=== PATIENT | male | born 1940 | race Asian ===

== ENCOUNTER 2019-05-18 18:52 | Inpatient (IN) | payer MEDICARE, OTHER ==
[~2019-05-18] VITALS: Ht 160 cm; Wt 69.1 kg
[2019-05-18] MEDS ORDERED: SOD CHLORIDE 0.9% 1,000 ML IV STA (18:57)
[2019-05-18] MEDS ORDERED: DIPHTH/TET/ACEL PERTUSS (ADULT) 0.5 ML VIAL IM* ONE (19:00)
--- NOTE | 2019-05-18 19:18 | ERD ---
ER Documentation Chief Complaint Chief Complaint [id number],from work,syncopal episode,no trauma,hx diabetes,BS 191 per EMS HPI This is a 78-year-old man brought in by EMS from work after syncopal episode while he was sitting down, he did lose bladder control with this episode, but no obvious seizure activity was noted. He states he injured his right elbow with the fall. He denies biting his tongue, no chest pain or shortness of breath, no recent fevers or chills. HPI was limited. Patient was transported here by EMS without further complications ROS All systems reviewed and are negative except as per history of present illness. Allergies Allergies: Coded Allergies: No Known Allergy (Unverified , 05/18/19) PMhx/Soc Hypertension Medical and Surgical Hx: pt denies Surgical Hx History of Surgery: No Anesthesia Reaction: No Hx Neurological Disorder: No Hx Respiratory Disorders: No Hx Cardiac Disorders: No Hx Psychiatric Problems: No Hx Miscellaneous Medical Probl: No Hx Alcohol Use: No Hx Substance Use: No Hx Tobacco Use: No Smoking Status: Never smoker FmHx Family History: No diabetes Physical Exam Vitals Vital Signs Date Temp Pulse Resp B/P (MAP) Pulse Ox O2 O2 Flow FiO2 Time Delivery Rate 05/18/19 98.6 84 17 137/68 98 18:58 (91) Physical Exam GENERAL: Well-developed, well-nourished, well-hydrated, in no apparent distress, looks nontoxic in appearance HEENT: Moist mucous membranes, pink conjunctiva, no cervical spine tenderness or step-off deformities, no goiter, no jaundice or icterus, extraocular movements intact without pain. No submandibular induration, and no pharyngeal erythema NEURO: Alert and oriented 3, cranial nerves II through XII intact bilaterally, pupils equal round reactive to light, no focal deficits or facial asymmetry, sensation intact distally Strength 5/5 in upper and lower extremities bilaterally CARDIAC: Regular rate and rhythm, no murmurs rubs or gallops LUNGS: Clear bilaterally no wheezing crackles or stridor SKIN: Warm and dry to touch, partial skin avulsion and large abrasion to the right posterior elbow and mild ecchymosis. EXTREMITIES: No clubbing cyanosis or edema, calves are bilaterally symmetrical, no Homans sign, no popliteal cord sign. Distal pulses equal and bilateral PSYCH: Normal affect without agitation or irritability Result Diagram: 05/18/19190105/18/191901 Results 24 hrs Laboratory Tests Test 05/18/19 19:02 05/18/19 19:03 White Blood Count 10.9 10^3/ul Red Blood Count 4.88 10^6/ul Hemoglobin 14.2 g/dl Hematocrit 42.6 % Mean Corpuscular Volume 87.3 fl Mean Corpuscular Hemoglobin 29.1 pg Mean Corpuscular Hemoglobin Concent 33.3 g/dl Red Cell Distribution Width 13.0 % Platelet Count 212 10^3/UL Mean Platelet Volume 10.1 fl Immature Granulocytes % 0.300 % Neutrophils % 72.5 % Lymphocytes % 17.2 % Monocytes % 8.6 % Eosinophils % 1.0 % Basophils % 0.4 % Nucleated Red Blood Cells % 0.0 /100WBC Immature Granulocytes # 0.030 10^3/ul Neutrophils # 7.9 10^3/ul Lymphocytes # 1.9 10^3/ul Monocytes # 0.9 10^3/ul Eosinophils # 0.1 10^3/ul Basophils # 0.0 10^3/ul Nucleated Red Blood Cells # 0.0 10^3/ul Sodium Level 142 mmol/L Potassium Level 3.9 mmol/L Chloride Level 108 mmol/L Carbon Dioxide Level 21 mmol/L Anion Gap 13 Blood Urea Nitrogen 39 mg/dl Creatinine 1.03 mg/dl Est Glomerular Filtrat Rate mL/min mL/min Glucose Level 202 mg/dl Calcium Level 9.5 mg/dl Total Bilirubin 1.3 mg/dl Direct Bilirubin 0.00 mg/dl Indirect Bilirubin 1.3 mg/dl Aspartate Amino Transf (AST/SGOT) 40 IU/L Alanine Aminotransferase (ALT/SGPT) 17 IU/L Alkaline Phosphatase 89 IU/L Troponin I < 0.012 ng/ml Total Protein 8.2 g/dl Albumin 4.4 g/dl Globulin 3.80 g/dl Albumin/Globulin Ratio 1.15 Lipase 63 U/L Bedside Glucose 186 mg/dL Current Medications Medications Dose Sig/Jessica Start Time Status Last (Trade) Ordered Route PRN Stop Time Admin Dose Reason Admin Sodium 1,000 ml @ Q1H STAT 05/18/19 DC 05/18/19 Chloride 1,000 mls/hr IV 18:57 05/18/19 19:04 19:56 Diphtheria/ 0.5 ml ONCE ONCE 05/18/19 DC 05/18/19 Tetanus/Acell IM* 19:00 05/18/19 19:05 Pertussis 19:01 (Adacel) Procedures/MDM IV line was established patient was placed on rehab aid rhythm strip revealed a sinus rhythm at about 80 bpm with upright P and T waves. Patient was afebrile EKG performed, read by me revealed a normal sinus rhythm at 84 bpm, normal axis, right ventricular conduction delay QRS duration 102 ms, no concerning ST elevations or depressions chest X-ray 1V Interpreted by me: Soft Tissue: No acute abnormalities Bones: No acute abnormalities Mediastinum/Cardiac Silhouette/Lungs: No acute abnormalities X-ray right Elbow 3V Interpreted by me: Fat Pads: Normal Bones: No fracture Joints: No dislocation Foreign body: None CT scan of the head was negative for acute bleed mass or shift I administered 1 L normal saline IV and tetanus toxoid 0.5 mL IM x1. Right elbow was cleansed and irrigated, dressing applied. CBC and electrolytes were within normal limits, liver function test normal, troponin was negative Patient will be admitted to telemetry setting for continued medical management and possible cardiology consultation Departure Diagnosis: Primary Impression: Syncope Syncope type: unspecified Qualified Codes: R55 - Syncope and collapse Additional Impressions: Elbow abrasion Encounter type: initial encounter Laterality: right Qualified Codes: S50.311A - Abrasion of right elbow, initial encounter Elbow sprain Encounter type: initial encounter Laterality: right Qualified Codes: S53.401A - Unspecified sprain of right elbow, initial encounter Condition: WILIAM Bhardwaj MD May 18, 2019 19:18
[2019-05-18 23:00] VITALS: BP 150/77; PULSE 78; RESP 20
[2019-05-18 23:20] VITALS: Ht 160 cm; Wt 69.1 kg
--- NOTE | 2019-05-18 23:58 | HP ---
Date/Time of Note Date/Time of Note DATE: 05/18/19 TIME: 23:58 Assessment/Plan VTE Prophylaxis Pharmacological prophylaxis: heparin Lines/Catheters IV Catheter Type (from Nrsg): Saline Lock Assessment/Plan Assessment/Plan 1. Syncope: -Telemetry monitoring -Head CT only shows remote lacunar infarct -Check orthostatics -2D echo and carotids -EKG without arrhythmia -Serial troponin 2. Right elbow injury -X-ray shows moderate soft tissue swelling and small joint effusion, but no fracture -Pain management Result Diagram: 05/18/19 19005/18/19 1902 Results 24hrs Laboratory Tests Test 05/18/19 19:02 05/18/19 19:03 White Blood Count 10.9 H Red Blood Count 4.88 Hemoglobin 14.2 Hematocrit 42.6 Mean Corpuscular Volume 87.3 Mean Corpuscular Hemoglobin 29.1 Mean Corpuscular Hemoglobin Concent 33.3 Red Cell Distribution Width 13.0 Platelet Count 212 Mean Platelet Volume 10.1 Immature Granulocytes % 0.300 Neutrophils % 72.5 Lymphocytes % 17.2 Monocytes % 8.6 Eosinophils % 1.0 Basophils % 0.4 Nucleated Red Blood Cells % 0.0 Immature Granulocytes # 0.030 Neutrophils # 7.9 H Lymphocytes # 1.9 Monocytes # 0.9 Eosinophils # 0.1 Basophils # 0.0 Nucleated Red Blood Cells # 0.0 Sodium Level 142 Potassium Level 3.9 Chloride Level 108 Carbon Dioxide Level 21 Anion Gap 13 Blood Urea Nitrogen 39 H Creatinine 1.03 Est Glomerular Filtrat Rate mL/min Glucose Level 202 Calcium Level 9.5 Total Bilirubin 1.3 Direct Bilirubin 0.00 Indirect Bilirubin 1.3 H Aspartate Amino Transf (AST/SGOT) 40 Alanine Aminotransferase (ALT/SGPT) 17 Alkaline Phosphatase 89 Troponin I < 0.012 Total Protein 8.2 H Albumin 4.4 Globulin 3.80 H Albumin/Globulin Ratio 1.15 Lipase 63 Bedside Glucose 186 HPI/ROS Admit Date/Time Admit Date/Time May 18, 2019 at 19:56 Hx of Present Illness Patient is a 78-year-old male with no significant past medical history except back pain who was brought to the ER after he had a loss of consciousness and fall. He was sitting when he had a witnessed syncopal episode. He said he placed Salonpas pain relieving patch to his back and while he was sitting down, he felt dizzy. He also felt both of his leg were weak. He said he periodically use Salonpas for back pain. 3 days ago, he felt dizzy and fell while he was at a restaurant. He sustained some injury to his elbows and the skin over his knee. He denied chest pain, palpitations, seizure-like activity. When presented to the ER, vitals were stable. Head CT shows remote lacunar infarct. Right elbow x-ray shows moderate soft tissue swelling and small joint effusion, but no fracture. Chest x-ray shows there is bilateral perihilar scarring versus atelectasis, likely COPD. PMH/Family/Social Past Medical History Past Surgical Hx: other Family History Significant Family History: no pertinent family hx Social History Alcohol Use: none Smoking Status: Never smoker Drug Use: none Exam Constitutional: other (No acute distress) Head: normocephalic, atraumatic Eyes: EOMI, PERRL Respiratory: clear to auscultation, normal air movement Cardiovascular: regular rate and rhythm Gastrointestinal: soft Extremities: normal pulses Coded Allergies: No Known Allergy (Unverified , 05/18/19) Social History Smoking Status: Never smoker Exam/Review of Systems Vital Signs Vitals Vital Signs Date Temp Pulse Resp B/P (MAP) Pulse Ox O2 O2 Flow FiO2 Time Delivery Rate 05/18/19 82 18 133/77 98 Room Air 22:41 (95) 05/18/19 98.6 18:58 Exam Constitutional: other (No acute distress) Head: normocephalic, atraumatic Eyes: EOMI, PERRL Respiratory: clear to auscultation, normal air movement Cardiovascular: regular rate and rhythm, nl pulses Gastrointestinal: soft, non-tender Extremities: other (Ecchymosis of the elbow. Lesion over knee also noted) CHETNA EID MD May 18, 2019 23:58
[2019-05-19] VITALS (8 sets, daily range): BP systolic 121–148; BP diastolic 60–72; PULSE 70–99; RESP 16–18
[2019-05-19] MEDS ORDERED: ONDANSETRON 4 MG INJ IV PRN
[2019-05-19] MEDS ORDERED: ALBUTEROL/IPRATROPIUM (NEB) 3 ML AMP HHN PRN
[2019-05-19] MEDS ORDERED: ACETAMINOPHEN 325 MG TAB PO PRN
[2019-05-19] MEDS ORDERED: NACL 0.9% 3 ML SYG IV SCH
[2019-05-19] MEDS ORDERED: PENDING SANTYL ORDER FOR WOUND CARE XX PRN (01:00)
[2019-05-19] MEDS: ASPIRIN (EC) 81 MG TAB PO SCH (12:51)
[2019-05-19] MEDS: HEPARIN 5,000 UNIT/1 ML VIAL SC SCH ×2 (12:59→20:56)
--- NOTE | 2019-05-19 15:15 | RADRPT ---
Echocardiogram Report Patient Name: ARUN RODRIGUEZPatient ID: [id number] : 1940 (78y 10m)Study Date: 05/19/2019 9:36:45 AM Gender: MAccession #: [id number] Tech: Devendra Nayak [facility] Location: [address] Ref.Physician: CHETNA EID Height(Cm): BSA: Weight(Kg): Quality: AdequateOrder Physician: CHETNA EID Account #: Procedures: Echocardiographic Report: Transthoracic echocardiogram with complete 2D, M-Mode, and doppler examination. Indications: Syncope. Measurements: 2D/M Mode Doppler Measurement Value Normal Range Measurement Value Normal Range LVIDd 2D 4.3 [ 4.2 - 5.8 ] cm AV Peak Manav 1.2 [ 100.0 - 170.0 ] cm/sec LVIDs 2D 3.6 [ 2.5 - 4.0 ] cm AV Peak PG 6.0 [ 2.0 - 9.0 ] mmHg LVPWd 2D 1.4 [ 0.6 - 1.0 ] cm LVOT Peak Manav 1.1 [ 70.0 - 110.0 ] cm/sec IVSd 2D 1.4 [ 0.6 - 1.0 ] cm LVOT Peak PG 5.0 [ 2.0 - 6.0 ] mmHg AoR Diam 2D 3.2 [ 2.6 - 3.4 ] cm MV E Peak Manav 0.6 [ 60.0 - 130.0 ] cm/sec EDV 2D 85.4 [ 62.0 - 150.0 ] ml MV A Peak Manav 1.1 [ 100.0 - 120.0 ] cm/sec ESV 2D 55.5 [ 21.0 - 61.0 ] ml MV E/A 0.5 [ 0.8 - 1.5 ] ratio EF 2D 35.0 [ 52.0 - 72.0 ] percent MV Decel Time 229 [ 104 - 258 ] msec LA Dimen 2D 3.8 [ 3.0 - 4.0 ] cm Lat E` Manav 0.1 [ 10.0 - 15.0 ] cm/sec Lateral E/E` 7.6 [ 1.0 - 2.0 ] ratio Med E` Manav 0.1 cm/sec MV E/A 0.5 [ 0.8 - 1.5 ] ratio RA Pressure 3.0 mmHg Findings: Left Ventricle: Normal left ventricular cavity size. Mild concentric left ventricular hypertrophy. Mild global left ventricular systolic dysfunction. Ejection fraction is visually estimated at 40-45 %. Tissue Doppler/Mitral Doppler indices are consistent with impaired relaxation (Stage I diastolic dysfunction). Right Ventricle: Normal right ventricular size. Normal right ventricular systolic function. Left Atrium: The left atrium is normal in size. Right Atrium: The right atrium is normal in size. Mitral Valve: Mild mitral leaflet calcification. Mild mitral annular calcification. Trace mitral regurgitation. Aortic Valve: No significant aortic stenosis or insufficiency. Aortic cusps appear mildly calcified. Tricuspid Valve: Normal appearance of the tricuspid valve. Unable to obtain RVSP due to minimal presence of tricuspid regurgitation. Pericardium: Normal pericardium with no significant pericardial effusion. Aorta: Normal aortic root. IVC: Normal size and normal respiratory collapse consistent with normal right atrial pressure. Conclusions: Normal left ventricular cavity size. Mild concentric left ventricular hypertrophy. Mild global left ventricular systolic dysfunction. Ejection fraction is visually estimated at 40-45 %. Tissue Doppler/Mitral Doppler indices are consistent with impaired relaxation (Stage I diastolic dysfunction). Mild mitral leaflet calcification. Mild mitral annular calcification. Trace mitral regurgitation. Normal appearance of the tricuspid valve. Unable to obtain RVSP due to minimal presence of tricuspid regurgitation. Electronically Signed By: Aneesh Bennett 2019-05-19 15:15:27 PDT
[2019-05-19] MEDS ORDERED: ATORVASTATIN 10 MG TAB PO SCH (21:00)
[2019-05-20 00:22] VITALS: BP 140/89; PULSE 91; RESP 18
[2019-05-20 04:17] VITALS: BP 148/86; PULSE 18; RESP 18
[2019-05-20 07:41] VITALS: BP 153/75; PULSE 90; RESP 16
[2019-05-20] MEDS: ASPIRIN (EC) 81 MG TAB PO SCH (10:24)
[2019-05-20] MEDS: HEPARIN 5,000 UNIT/1 ML VIAL SC SCH (10:27)
--- NOTE | 2019-05-20 10:30 | CONSI ---
Assessment/Plan Assessment/Plan Assessment/Plan (Recall) 78 M c/ multiple cerebrovascular risk factors, who presents for evaluation following a fall MRI brain confirms scattered, left hemisphere predominant acute infarcts...for which neurology is consulted. CTA neck as notable for bicarotid stenosis...worst on the left. TTE is unrevealing LDL 170; a1c 9 P: Vascular surgery evaluation Agree w asa daily for secondary prevention for now Change lipitor to 80 mg hs for now Add UDS, RPR, ESR Continued BP, glucose and other medical management per primary PT/OT/ST as necessary Will follow Consultation Date/Type/Reason Admit Date/Time May 18, 2019 at 19:56 Type of Consult Neurology Reason for Consultation stroke Requesting Provider: JOSE JEFFERSON MD Date/Time of Note DATE: 05/20/19 TIME: 10:23 Hx of Present Illness Patient is a 78-year-old male with no significant past medical history except back pain who was brought to the ER after he had a loss of consciousness and fall. He was sitting when he had a witnessed syncopal episode. He said he placed Salonpas pain relieving patch to his back and while he was sitting down, he felt dizzy. He also felt both of his leg were weak. He said he periodically use Salonpas for back pain. 3 days ago, he felt dizzy and fell while he was at a restaurant. He sustained some injury to his elbows and the skin over his knee. He denied chest pain, palpitations, seizure-like activity. When presented to the ER, vitals were stable. Head CT shows remote lacunar infarct. Right elbow x-ray shows moderate soft tissue swelling and small joint effusion, but no fracture. Chest x-ray shows there is bilateral perihilar scarring versus atelectasis, likely COPD. MRI brain confirmed scatter acute infarcts, for which neurology is consulted. 12 PT ROS o/w neg Objective Exam Vitals Vital Signs Date Temp Pulse Resp B/P (MAP) Pulse Ox O2 O2 Flow FiO2 Time Delivery Rate 05/20/19 98.2 90 16 153/75 96 Room Air 07:41 (101) Intake and Output 05/19/19 05/19/19 05/20/19 1515:00 23:00 07:00 OutputOutput Total 220 ml 200 ml BalanceBalance -220 ml -200 ml Exam PE: Gen Appearance: No Apparent Distress HEENT: Normocephalic Cardiovascular: Regular rate Abdomen: Soft Extremities: Dry NE: The patient was alert and oriented. Language was normal. Fund of knowledge was adequate. Pupils were equal and reactive to light. There was no afferent pupillary defect. Visual albarran were normal. Funduscopic examination was limited. Extra-ocular movements were full. Ptosis was absent. There was no nystagmus. Facial sensation was normal. Face was symmetric with normal strength. Hearing was intact. Palate movements were normal. Neck strength was normal. There was normal tongue bulk and speed of movement. Tone was normal. Muscle bulk was normal. I did not see fasciculations. R leg was severely weak. Vibration sensation was normal. Temperature and pinprick sensation was normal. Rapid alternating movements were normal. There was no dysmetria. There was no intention tremor. Gait was deferred due to bedrest. Arm and leg reflexes were symmetric. Blevins's sign was absent. Plantar response was extensor on the right. Results Result Diagram: 05/20/19 0515 05/20/19 0515 Results 24hrs Laboratory Tests Test 05/20/19 05:15 White Blood Count 8.4 Red Blood Count 4.60 L Hemoglobin 13.4 L Hematocrit 40.4 L Mean Corpuscular Volume 87.8 Mean Corpuscular Hemoglobin 29.1 Mean Corpuscular Hemoglobin Concent 33.2 Red Cell Distribution Width 12.9 Platelet Count 211 Mean Platelet Volume 10.4 Immature Granulocytes % 0.400 Neutrophils % 69.8 Lymphocytes % 19.1 Monocytes % 8.8 Eosinophils % 1.2 Basophils % 0.7 Nucleated Red Blood Cells % 0.0 Immature Granulocytes # 0.030 Neutrophils # 5.9 Lymphocytes # 1.6 Monocytes # 0.7 Eosinophils # 0.1 Basophils # 0.1 Nucleated Red Blood Cells # 0.0 Prothrombin Time 13.1 Prothrombin Time Ratio 1.0 INR International Normalized Ratio 0.98 Sodium Level 144 Potassium Level 3.8 Chloride Level 113 H Carbon Dioxide Level 24 Anion Gap 7 Blood Urea Nitrogen 26 H Creatinine 0.79 Est Glomerular Filtrat Rate mL/min Glucose Level 245 H Calcium Level 8.8 Phosphorus Level 2.6 Magnesium Level 2.1 Free Thyroxine 1.45 Total Triiodothyronine 0.70 L Past Medical History reviewed Medications Current Medications IV Flush (NS 3 ml) 3 ml PER PROTOCOL IV ; Start 05/19/19 at 00:00 Ondansetron HCl (Zofran Inj) 4 mg Q6H PRN IV NAUSEA/VOMITING; Start 05/19/19 at 00:00 Acetaminophen (Tylenol Tab) 650 mg Q6H PRN PO .PAIN 1-3 OR TEMP; Start 05/19/19 at 00:00 Heparin Sodium (Porcine) (Heparin (5000 Units/1ml)) 5,000 unit Q12 SC Last administered on 05/19/19at 20:56; Admin Dose 5,000 UNIT; Start 05/19/19 at 09:00 Albuterol/ Ipratropium (Duoneb) 3 ml Q2H RESP THERAPY PRN HHN SHORTNESS OF BREATH; Start 05/19/19 at 00:00 Aspirin (Halfprin) 81 mg DAILY PO Last administered on 05/19/19at 12:51; Admin Dose 81 MG; Start 05/19/19 at 09:00 Miscellaneous Information (Pending [facility] Order For Wound Care) This patient robledo... PRN PRN XX WOUND CARE; Start 05/19/19 at 01:00 Atorvastatin Calcium (Lipitor) 10 mg HS PO Last administered on 05/19/19at 20:54; Admin Dose 10 MG; Start 05/19/19 at 21:00 Allergies: Coded Allergies: No Known Allergy (Unverified , 05/18/19) Social History Smoking Status: Never smoker MICKIE REID May 20, 2019 10:30
[2019-05-20] MEDS ORDERED: SOD CHLORIDE 0.9% 100 ML ONE (11:00)
[2019-05-20] MEDS ORDERED: IOHEXOL 100 ML ONE (11:00)
[2019-05-20 11:30] VITALS: BP 140/71; PULSE 77; RESP 18
--- NOTE | 2019-05-20 14:36 | PN ---
Date/Time of Note Date/Time of Note DATE: 05/20/19 TIME: 14:34 Assessment/Plan VTE Prophylaxis Risk score (from Ns)>0 risk: 4 SCD applied (from Ns): Yes SCD contraindicated: low risk/ambulating Pharmacological prophylaxis: LMWH Lines/Catheters IV [facility]from [facility] Saline Lock Assessment/Plan Hospital Course Assessment and plan 1. Syncope, likely symptomatic carotid stenosis. Stable check CTA 2. Bilateral carotid stenosis, stable consult vascular 3. Acute ischemic stroke, stable continue risk factor modification 4. Delirium encephalopathy? Multifactorial continue supportive care 5. Failure to thrive, stable discharge to acute rehab 6. Clinical hypothyroidism, thyroid nodules? Check labs ultrasound 7. Type 2 diabetes A1c 9. Restart medical therapy 8. Metabolic syndrome 9. Dyslipidemia Subjective: 05/20 no distress follows commands. Not oriented today. Objective: Vital signs stable Physical exam No pallor droop Regular no murmur gallop Clear Benign No edema there is moderate right lower extremity hemiparesis Result Diagram: 05/20/19 0515 05/20/19 0515 Results 24hrs Laboratory Tests Test 05/20/19 05:15 White Blood Count 8.4 Red Blood Count 4.60 L Hemoglobin 13.4 L Hematocrit 40.4 L Mean Corpuscular Volume 87.8 Mean Corpuscular Hemoglobin 29.1 Mean Corpuscular Hemoglobin Concent 33.2 Red Cell Distribution Width 12.9 Platelet Count 211 Mean Platelet Volume 10.4 Immature Granulocytes % 0.400 Neutrophils % 69.8 Lymphocytes % 19.1 Monocytes % 8.8 Eosinophils % 1.2 Basophils % 0.7 Nucleated Red Blood Cells % 0.0 Immature Granulocytes # 0.030 Neutrophils # 5.9 Lymphocytes # 1.6 Monocytes # 0.7 Eosinophils # 0.1 Basophils # 0.1 Nucleated Red Blood Cells # 0.0 Erythrocyte Sedimentation Rate 25.0 H Prothrombin Time 13.1 Prothrombin Time Ratio 1.0 INR International Normalized Ratio 0.98 Sodium Level 144 Potassium Level 3.8 Chloride Level 113 H Carbon Dioxide Level 24 Anion Gap 7 Blood Urea Nitrogen 26 H Creatinine 0.79 Est Glomerular Filtrat Rate mL/min Glucose Level 245 H Calcium Level 8.8 Phosphorus Level 2.6 Magnesium Level 2.1 Free Thyroxine 1.45 Total Triiodothyronine 0.70 L Exam/Review of Systems Exam Vitals Vital Signs Date Temp Pulse Resp B/P (MAP) Pulse Ox O2 O2 Flow FiO2 Time Delivery Rate 05/20/19 98.5 77 18 140/71 98 Room Air 11:30 (94) Intake and Output 05/19/19 05/19/19 05/20/19 1515:00 23:00 07:00 OutputOutput Total 220 ml 200 ml BalanceBalance -220 ml -200 ml Results Results 24hrs Laboratory Tests Test 05/20/19 05:15 White Blood Count 8.4 Red Blood Count 4.60 L Hemoglobin 13.4 L Hematocrit 40.4 L Mean Corpuscular Volume 87.8 Mean Corpuscular Hemoglobin 29.1 Mean Corpuscular Hemoglobin Concent 33.2 Red Cell Distribution Width 12.9 Platelet Count 211 Mean Platelet Volume 10.4 Immature Granulocytes % 0.400 Neutrophils % 69.8 Lymphocytes % 19.1 Monocytes % 8.8 Eosinophils % 1.2 Basophils % 0.7 Nucleated Red Blood Cells % 0.0 Immature Granulocytes # 0.030 Neutrophils # 5.9 Lymphocytes # 1.6 Monocytes # 0.7 Eosinophils # 0.1 Basophils # 0.1 Nucleated Red Blood Cells # 0.0 Erythrocyte Sedimentation Rate 25.0 H Prothrombin Time 13.1 Prothrombin Time Ratio 1.0 INR International Normalized Ratio 0.98 Sodium Level 144 Potassium Level 3.8 Chloride Level 113 H Carbon Dioxide Level 24 Anion Gap 7 Blood Urea Nitrogen 26 H Creatinine 0.79 Est Glomerular Filtrat Rate mL/min Glucose Level 245 H Calcium Level 8.8 Phosphorus Level 2.6 Magnesium Level 2.1 Free Thyroxine 1.45 Total Triiodothyronine 0.70 L Medications Medication Current Medications IV Flush (NS 3 ml) 3 ml PER PROTOCOL IV ; Start 05/19/19 at 00:00 Ondansetron HCl (Zofran Inj) 4 mg Q6H PRN IV NAUSEA/VOMITING; Start 05/19/19 at 00:00 Acetaminophen (Tylenol Tab) 650 mg Q6H PRN PO .PAIN 1-3 OR TEMP; Start 05/19/19 at 00:00 Heparin Sodium (Porcine) (Heparin (5000 Units/1ml)) 5,000 unit Q12 SC Last administered on 05/20/19at 10:27; Admin Dose 5,000 UNIT; Start 05/19/19 at 09:00 Albuterol/ Ipratropium (Duoneb) 3 ml Q2H RESP THERAPY PRN HHN SHORTNESS OF BREATH; Start 05/19/19 at 00:00 Aspirin (Halfprin) 81 mg DAILY PO Last administered on 05/20/19at 10:24; Admin Dose 81 MG; Start 05/19/19 at 09:00 [facility] This patient robleod... PRN PRN XX WOUND CARE; Start 05/19/19 at 01:00 Atorvastatin Calcium (Lipitor) 80 mg HS PO ; Start 05/20/19 at 21:00 JOSE JEFFERSON MD May 20, 2019 14:36
--- NOTE | 2019-05-20 14:37 | PN ---
Date/Time of Note Date/Time of Note DATE: 05/20/19 TIME: 14:37 Assessment/Plan VTE Prophylaxis Risk score (from Ns)>0 risk: 4 SCD applied (from Ns): Yes SCD contraindicated: low risk/ambulating Pharmacological prophylaxis: LMWH Lines[facility] Assessment/Plan Hospital Course Assessment and plan 1. Syncope, likely symptomatic carotid stenosis. Stable check CTA 2. Bilateral carotid stenosis, stable consulted vascular 3. Acute ischemic stroke, stable continue risk factor modification 4. Delirium/ encephalopathy? Multifactorial continue supportive care 5. Failure to thrive, stable discharge to acute rehabSNF 6. Clinical hypothyroidism, thyroid nodules? Check labs ultrasound 7. Type 2 diabetes A1c 9. Restart medical therapy 8. Metabolic syndrome 9. Dyslipidemia Subjective: 05/20 no distress following commands. Objective: Vital signs stable Physical exam No pallor droop Regular no mrg Clear Benign No edema there is moderate right lower extremity hemiparesis Result Diagram: 05/20/19 0515 05/20/19 0515 Results 24hrs Laboratory Tests Test 05/20/19 05:15 White Blood Count 8.4 Red Blood Count 4.60 L Hemoglobin 13.4 L Hematocrit 40.4 L Mean Corpuscular Volume 87.8 Mean Corpuscular Hemoglobin 29.1 Mean Corpuscular Hemoglobin Concent 33.2 Red Cell Distribution Width 12.9 Platelet Count 211 Mean Platelet Volume 10.4 Immature Granulocytes % 0.400 Neutrophils % 69.8 Lymphocytes % 19.1 Monocytes % 8.8 Eosinophils % 1.2 Basophils % 0.7 Nucleated Red Blood Cells % 0.0 Immature Granulocytes # 0.030 Neutrophils # 5.9 Lymphocytes # 1.6 Monocytes # 0.7 Eosinophils # 0.1 Basophils # 0.1 Nucleated Red Blood Cells # 0.0 Erythrocyte Sedimentation Rate 25.0 H Prothrombin Time 13.1 Prothrombin Time Ratio 1.0 INR International Normalized Ratio 0.98 Sodium Level 144 Potassium Level 3.8 Chloride Level 113 H Carbon Dioxide Level 24 Anion Gap 7 Blood Urea Nitrogen 26 H Creatinine 0.79 Est Glomerular Filtrat Rate mL/min Glucose Level 245 H Calcium Level 8.8 Phosphorus Level 2.6 Magnesium Level 2.1 Free Thyroxine 1.45 Total Triiodothyronine 0.70 L Exam/Review of Systems Exam Vitals Vital Signs Date Temp Pulse Resp B/P (MAP) Pulse Ox O2 O2 Flow FiO2 Time Delivery Rate 05/20/19 98.5 77 18 140/71 98 Room Air 11:30 (94) Intake and Output 05/19/19 05/19/19 05/20/19 1515:00 23:00 07:00 OutputOutput Total 220 ml 200 ml BalanceBalance -220 ml -200 ml Results Results 24hrs Laboratory Tests Test 05/20/19 05:15 White Blood Count 8.4 Red Blood Count 4.60 L Hemoglobin 13.4 L Hematocrit 40.4 L Mean Corpuscular Volume 87.8 Mean Corpuscular Hemoglobin 29.1 Mean Corpuscular Hemoglobin Concent 33.2 Red Cell Distribution Width 12.9 Platelet Count 211 Mean Platelet Volume 10.4 Immature Granulocytes % 0.400 Neutrophils % 69.8 Lymphocytes % 19.1 Monocytes % 8.8 Eosinophils % 1.2 Basophils % 0.7 Nucleated Red Blood Cells % 0.0 Immature Granulocytes # 0.030 Neutrophils # 5.9 Lymphocytes # 1.6 Monocytes # 0.7 Eosinophils # 0.1 Basophils # 0.1 Nucleated Red Blood Cells # 0.0 Erythrocyte Sedimentation Rate 25.0 H Prothrombin Time 13.1 Prothrombin Time Ratio 1.0 INR International Normalized Ratio 0.98 Sodium Level 144 Potassium Level 3.8 Chloride Level 113 H Carbon Dioxide Level 24 Anion Gap 7 Blood Urea Nitrogen 26 H Creatinine 0.79 Est Glomerular Filtrat Rate mL/min Glucose Level 245 H Calcium Level 8.8 Phosphorus Level 2.6 Magnesium Level 2.1 Free Thyroxine 1.45 Total Triiodothyronine 0.70 L Medications Medication Current Medications IV Flush (NS 3 ml) 3 ml PER PROTOCOL IV ; Start 05/19/19 at 00:00 Ondansetron HCl (Zofran Inj) 4 mg Q6H PRN IV NAUSEA/VOMITING; Start 05/19/19 at 00:00 Acetaminophen (Tylenol Tab) 650 mg Q6H PRN PO .PAIN 1-3 OR TEMP; Start 05/19/19 at 00:00 Heparin Sodium (Porcine) (Heparin (5000 Units/1ml)) 5,000 unit Q12 SC Last administered on 05/20/19at 10:27; Admin Dose 5,000 UNIT; Start 05/19/19 at 09:00 Albuterol/ Ipratropium (Duoneb) 3 ml Q2H RESP THERAPY PRN HHN SHORTNESS OF BREATH; Start 05/19/19 at 00:00 Aspirin (Halfprin) 81 mg DAILY PO Last administered on 05/20/19at 10:24; Admin Dose 81 MG; Start 05/19/19 at 09:00 Miscellaneous Information (Pending [facility] Order For Wound Care) This patient robledo... PRN PRN XX WOUND CARE; Start 05/19/19 at 01:00 Atorvastatin Calcium (Lipitor) 80 mg HS PO ; Start 05/20/19 at 21:00 JOSE JEFFERSON MD May 20, 2019 14:37
[2019-05-20 15:39] VITALS: BP 119/69; PULSE 84; RESP 16
[2019-05-20 20:00] VITALS: BP 121/61; PULSE 83; RESP 83
[2019-05-20] MEDS: ATORVASTATIN 80 MG TAB PO SCH (21:01)
[2019-05-20] MEDS: FAMOTIDINE 20 MG TAB PO SCH (21:01)
[2019-05-21] VITALS: BP 109/53; PULSE 80; RESP 18
[2019-05-21 04:33] VITALS: BP 103/62; PULSE 76; RESP 18
[2019-05-21 07:17] VITALS: BP 105/58; PULSE 76; RESP 16
[2019-05-21] MEDS ORDERED: LISINOPRIL 5 MG TAB PO SCH (09:00)
[2019-05-21] MEDS: ASPIRIN (EC) 81 MG TAB PO SCH (10:07)
[2019-05-21] MEDS: ENOXAPARIN 40 MG/0.4 ML SYG SC SCH (10:12)
[2019-05-21 11:42] VITALS: BP 102/55; PULSE 92; RESP 20
[2019-05-21 15:22] VITALS: BP 112/58; PULSE 69; RESP 18
--- NOTE | 2019-05-21 15:55 | PN ---
Date/Time of Note Date/Time of Note DATE: 05/21/19 TIME: 15:53 Assessment/Plan VTE Prophylaxis Risk score (from Ns)>0 risk: 4 SCD applied (from Ns): Yes SCD contraindicated: low risk/ambulating Pharmacological prophylaxis: LMWH Pharm contraindication: low risk/ambulating Lines/Catheters [facility]from [facility] Saline Lock Assessment/Plan Hospital Course Assessment and plan 1. Syncope, likely symptomatic carotid stenosis. Stable consulted Vascular. 2. Bilateral carotid stenosis, stable consulted vascular 3. Acute ischemic stroke, stable continue risk factor modification 4. Delirium/ encephalopathy? Multifactorial continue supportive care 5. Failure to thrive, stable discharge to acute rehab/ SNF 6. Clinical hypothyroidism, thyroid nodules? Checked labs ultrasound 7. Type 2 diabetes A1c 9. Restarted medical therapy 8. Metabolic syndrome 9. Dyslipidemia Subjective: 05/20 no distress following commands. 05/21: no oriented, but follows commands. no new deficits. Objective: Vital signs stable PE No pallor droop, no c bruits Regular no mrg Clear Benign No edema moderate right lower ext weakness Result Diagram: 05/20/1915 05/20/1915 Results 24hrs Laboratory Tests Test 05/21/19 02:23 Urine Opiates Screen Negative Urine Barbiturates Negative Urine Amphetamines Screen Negative Urine Benzodiazepines Screen Negative Urine Cocaine Screen Negative Urine Cannabinoids Negative Exam/Review of Systems Exam Vitals Vital Signs Date Temp Pulse Resp B/P (MAP) Pulse Ox O2 O2 Flow FiO2 Time Delivery Rate 05/21/19 98.2 69 18 112/58 96 Room Air 15:22 (76) Intake and Output 05/20/19 05/20/19 05/21/19 1515:00 23:00 07:00 IntakeIntake Total 600 ml 360 ml OutputOutput Total 900 ml 250 ml BalanceBalance 600 ml -540 ml -250 ml Results Results 24hrs Laboratory Tests Test 05/21/19 02:23 Urine Opiates Screen Negative Urine Barbiturates Negative Urine Amphetamines Screen Negative Urine Benzodiazepines Screen Negative Urine Cocaine Screen Negative Urine Cannabinoids Negative Medications Medication Current Medications IV Flush (NS 3 ml) 3 ml PER PROTOCOL IV ; Start 05/19/19 at 00:00 Ondansetron HCl (Zofran Inj) 4 mg Q6H PRN IV NAUSEA/VOMITING; Start 05/19/19 at 00:00 Acetaminophen (Tylenol Tab) 650 mg Q6H PRN PO .PAIN 1-3 OR TEMP; Start 05/19/19 at 00:00 Albuterol/ Ipratropium (Duoneb) 3 ml Q2H RESP THERAPY PRN HHN SHORTNESS OF BR EATH; Start 05/19/19 at 00:00 Aspirin (Halfprin) 81 mg DAILY PO Last administered on 05/21/19at 10:07; Admin Dose 81 MG; Start 05/19/19 at 09:00 Miscellaneous Information (Pending [facility] Order For Wound Care) This patient robledo... PRN PRN XX WOUND CARE; Start 05/19/19 at 01:00 Atorvastatin Calcium (Lipitor) 80 mg HS PO Last administered on 05/20/19at 21:01; Admin Dose 80 MG; Start 05/20/19 at 21:00 Enoxaparin Sodium (Lovenox) 40 mg DAILY SC Last administered on 05/21/19at 10:12; Admin Dose 40 MG; Start 05/21/19 at 09:00 Famotidine (Pepcid) 20 mg HS PO Last administered on 05/20/19at 21:01; Admin Dose 20 MG; Start 05/20/19 at 21:00 Lisinopril (Zestril) 2.5 mg DAILY PO ; Start 05/21/19 at 09:00 JOSE JEFFERSON MD May 21, 2019 15:55
--- NOTE | 2019-05-21 17:23 | CONS ---
DATE OF ADMISSION: 05/18/2019 DATE OF CONSULTATION: REASON FOR CONSULTATION: Evaluation for carotid stenosis. HISTORY OF PRESENT ILLNESS: This is a 78-year-old male with a history of back pain, admitted with di zziness and syncope. No lateralizing sign. Part of his workup has included a carotid ultrasound whi ch has showed greater than 70% stenosis in the left ICA and 50% to 69% stenosis in the right ICA. Th is was followed up with a CT of the neck which has showed a 75% stenosis in the ICA involved and 70% stenosis in the right ICA involved. The patient has also had a CAT scan of the brain, which shows no evidence of any recent acute stroke. MRI of the brain has also been done which shows multiple punct ate acute infarcts in the left frontal and parietal cortex. PAST MEDICAL HISTORY: Hypertension. PAST SURGICAL HISTORY: None. ALLERGIES: NONE. MEDICATIONS: List reviewed. PHYSICAL EXAMINATION: VITAL SIGNS: Blood pressure is 112/58, pulse is 69, respirations 18, saturations 96% on room air. CARDIOVASCULAR: Regular rate and rhythm. Normal S1, S2. LUNGS: Clear. ABDOMEN: Soft. EXTREMITIES: Warm. LABORATORY VALUES: Hemoglobin 13.4, white count 8.4, creatinine 0.79. IMPRESSION: 1. Syncope. 2. No lateralizing sign. No signs of acute infarct. RECOMMENDATIONS: The patient has high grade stenosis of the carotid arteries, worse on the left than the right. He would need a carotid endarterectomy on the left side after he has recovered from the current neurological event. We will discuss with the referring physicians. Dictated By: JAELYN MAZARIEGOS/ANTHONY Conf#: [id number] DID#: [id number]
--- NOTE | 2019-05-21 18:08 | CONS ---
Assessment/Plan Assessment/Plan Assessment/Plan (Recall) 78 M c/ multiple cerebrovascular risk factors, who presents for evaluation following a fall MRI brain confirms scattered, left hemisphere predominant acute infarcts...for which neurology is consulted. CTA neck as notable for bicarotid stenosis...worst on the left. TTE is unrevealing LDL 170; a1c 9, ESR 25 UDS neg; RPR neg P: Agree w/ L CEA, per vascular surgery Agree w asa daily for secondary prevention for now Continue lipitor 80 mg hs for now Continued BP, glucose and other medical management per primary PT/OT/ST as necessary Will follow clinically Consultation Date/Type/Reason Admit Date/Time May 18, 2019 at 19:56 Type of Consult Neurology Reason for Consultation stroke Requesting Provider: JOSE JEFFERSON MD Date/Time of Note DATE: 05/21/19 TIME: 18:07 24 HR Interval Summary Free Text/Dictation seen by vascular surgery Exam/Review of Systems Exam Vitals Vital Signs Date Temp Pulse Resp B/P (MAP) Pulse Ox O2 O2 Flow FiO2 Time Delivery Rate 05/21/19 98.2 69 18 112/58 96 Room Air 15:22 (76) Intake and Output 05/20/19 05/20/19 05/21/19 1515:00 23:00 07:00 IntakeIntake Total 600 ml 360 ml OutputOutput Total 900 ml 250 ml BalanceBalance 600 ml -540 ml -250 ml Results Result Diagram: 05/20/19 0515 05/20/19 0515 Results 24hrs Laboratory Tests Test 05/21/19 02:23 Urine Opiates Screen Negative Urine Barbiturates Negative Urine Amphetamines Screen Negative Urine Benzodiazepines Screen Negative Urine Cocaine Screen Negative Urine Cannabinoids Negative Medications Medication Current Medications IV Flush (NS 3 ml) 3 ml PER PROTOCOL IV ; Start 05/19/19 at 00:00 Ondansetron HCl (Zofran Inj) 4 mg Q6H PRN IV NAUSEA/VOMITING; Start 05/19/19 at 00:00 Acetaminophen (Tylenol Tab) 650 mg Q6H PRN PO .PAIN 1-3 OR TEMP; Start 05/19/19 at 00:00 Albuterol/ Ipratropium (Duoneb) 3 ml Q2H RESP THERAPY PRN HHN SHORTNESS OF BREATH; Start 05/19/19 at 00:00 Aspirin (Halfprin) 81 mg DAILY PO Last administered on 05/21/19 10:07; Admin Dose 81 MG; Start 05/19/19 at 09:00 [facility] This patient robledo... PRN PRN XX WOUND CARE; Start 05/19/19 at 01:00 Atorvastatin Calcium (Lipitor) 80 mg HS PO Last administered on 05/20/19 21:01; Admin Dose 80 MG; Start 05/20/19 at 21:00 Enoxaparin Sodium (Lovenox) 40 mg DAILY SC Last administered on 05/21/19at 10:12; Admin Dose 40 MG; Start 05/21/19 at 09:00 Famotidine (Pepcid) 20 mg HS PO Last administered on 05/20/19at 21:01; Admin Dose 20 MG; Start 05/20/19 at 21:00 Lisinopril (Zestril) 2.5 mg DAILY PO ; Start 05/24/19 at 09:00 MICKIE REID May 21, 2019 18:08
[2019-05-21 20:00] VITALS: BP 115/58; PULSE 89; RESP 18
[2019-05-21] MEDS: FAMOTIDINE 20 MG TAB PO SCH (22:13)
[2019-05-21] MEDS: ATORVASTATIN 80 MG TAB PO SCH (22:13)
[2019-05-22] VITALS: BP 113/59; PULSE 82; RESP 18
[2019-05-22] MEDS ORDERED: LORAZEPAM 2 MG INJ IV PRN (02:30)
[2019-05-22] MEDS ORDERED: HALOPERIDOL 5 MG INJ IM PRN (02:30)
[2019-05-22 04:00] VITALS: BP 135/64; PULSE 80; RESP 18
[2019-05-22 07:38] VITALS: BP 110/58; PULSE 82; RESP 18
[2019-05-22] MEDS: ASPIRIN (EC) 81 MG TAB PO SCH (08:44)
[2019-05-22] MEDS: ENOXAPARIN 40 MG/0.4 ML SYG SC SCH (08:48)
--- NOTE | 2019-05-22 10:49 | PN ---
Date/Time of Note Date/Time of Note DATE: 05/22/19 TIME: 10:47 Assessment/Plan Lines/Catheters IV Catheter Type (from Nrsg): Saline Lock [place] in Place (from Nrsg): No Assessment/Plan Assessment/Plan IMP Bilateral carotid stenosis RECOMMENDATIONS: The patient has high grade stenosis of the carotid arteries, worse on the left than the right. He would need a carotid endarterectomy on the left side after he has recovered from the current neurological event. Pt to go to rehab. Discussed with the referring physicians. Subjective 24 Hr Interval Summary Constitutional: improved Pain Control: mild Exam/Review of Systems Vital Signs Vitals Vital Signs Date Temp Pulse Resp B/P (MAP) Pulse Ox O2 O2 Flow FiO2 Time Delivery Rate 05/22/19 98.4 82 18 110/58 96 07:38 (75) 05/22/19 Room Air 04:00 Intake and Output 05/21/19 05/21/19 05/22/19 1515:00 23:00 07:00 IntakeIntake Total 240 ml 1200 ml OutputOutput Total 1100 ml BalanceBalance 240 ml 100 ml Exam Eyes: nl conjunctiva, EOMI, nl lids, nl sclera ENMT: nl external ears & nose, nl lips & teeth, nl nasal mucosa & septum, mucosa pink and moist Neck: supple, non-tender Respiratory: clear to auscultation, normal air movement Cardiovascular: regular rate and rhythm, nl pulses Gastrointestinal: soft, nl liver, spleen, non-tender Musculoskeletal: nl extremities to inspection, nl gait and stance Results Result Diagram: 05/20/19 0515 05/20/19 0515 JAELYN HOLGUIN MD May 22, 2019 10:49
[2019-05-22 11:07] VITALS: BP 118/59; PULSE 83; RESP 16
[2019-05-22] MEDS: NEOMYC/POLYMYX/BACIT 30 GM OINT TOP SCH (14:24)
[2019-05-22 15:16] VITALS: BP 133/69; PULSE 79; RESP 18
[2019-05-22 20:00] VITALS: BP 118/60; PULSE 84; RESP 18
[2019-05-22] MEDS: FAMOTIDINE 20 MG TAB PO SCH (20:17)
[2019-05-22] MEDS: ATORVASTATIN 80 MG TAB PO SCH (20:17)
--- NOTE | 2019-05-22 20:38 | PN ---
Date/Time of Note Date/Time of Note DATE: 05/22/19 TIME: 20:36 Assessment/Plan VTE Prophylaxis Risk score (from Nsg)>0 risk: 4 SCD applied (from Ns): Yes SCD contraindicated: low risk/ambulating Pharmacological prophylaxis: LMWH Lines/Catheters IV Catheter Type (from Nrsg): Saline Lock Urinary Cath still in place: No Assessment/Plan Hospital Course A/P 1. Syncope, stroke related. Stable cont pt; dc to ARU. 2. Bilateral carotid stenosis, stable. appt vascular 1-2wks lt /rt stenosis 3. Acute ischemic stroke, stable continue risk factor modification 4. Delirium/ encephalopathy? Multifactorial continue supportive care 5. Ftt, stable dc to ARU or SNF 6. Clinical hypothyroidism, thyroid nodules? Checked labs ultrasound 7. Type 2 diabetes A1c 9. Restarted medical therapy 8. Metabolic syndrome 9. Dyslipidemia 10. Dysphagia, continue ST therapy recommendations Subjective: 05/20 no distress following commands. 05/21: no oriented, but follows commands. no new deficits. 05/22: Oriented to year month. No distress. Objective: Vital signs stable PE No pallor droop, no c bruits Regular no mrg Clear Benign No edema moderate right lower ext weakness Result Diagram: 05/20/19 0515 05/20/19 0515 Exam/Review of Systems Exam Vitals Vital Signs Date Temp Pulse Resp B/P (MAP) Pulse Ox O2 O2 Flow FiO2 Time Delivery Rate 05/22/19 98.4 79 18 133/69 95 15:16 (90) 05/22/19 Room Air 04:00 Intake and Output 05/21/19 05/21/19 05/22/19 1515:00 23:00 07:00 IntakeIntake Total 240 ml 1200 ml OutputOutput Total 1100 ml BalanceBalance 240 ml 100 ml Medications Medication Current Medications IV Flush (NS 3 ml) 3 ml PER PROTOCOL IV ; Start 05/19/19 at 00:00 Ondansetron HCl (Zofran Inj) 4 mg Q6H PRN IV NAUSEA/VOMITING; Start 05/19/19 at 00:00 Acetaminophen (Tylenol Tab) 650 mg Q6H PRN PO .PAIN 1-3 OR TEMP; Start 05/19/19 at 00:00 Albuterol/ Ipratropium (Duoneb) 3 ml Q2H RESP THERAPY PRN HHN SHORTNESS OF BREATH; Start 05/19/19 at 00:00 Aspirin (Halfprin) 81 mg DAILY PO Last administered on 05/22/19 08:44; Admin Dose 81 MG; Start 05/19/19 at 09:00 Miscellaneous Information (Pending [facility] Order For Wound Care) This patient robledo... PRN PRN XX WOUND CARE; Start 05/19/19 at 01:00 Atorvastatin Calcium (Lipitor) 80 mg HS PO Last administered on 05/22/19 20:17; Admin Dose 80 MG; Start 05/20/19 at 21:00 Enoxaparin Sodium (Lovenox) 40 mg DAILY SC Last administered on 05/22/19 08:48; Admin Dose 40 MG; Start 05/21/19 at 09:00 Famotidine (Pepcid) 20 mg HS PO Last administered on 05/22/19 20:17; Admin Dose 20 MG; Start 05/20/19 at 21:00 Lisinopril (Zestril) 2.5 mg DAILY PO ; Start 05/24/19 at 09:00 Haloperidol (Haldol) 5 mg ONCE PRN IM AGITATION; Start 05/22/19 at 02:30; Stop 05/23/19 at 02:29 Lorazepam (Ativan) 1 mg ONCE PRN IV AGITATION Last administered on 05/22/19at 02:53; Admin Dose 1 MG; Start 05/22/19 at 02:30; Stop 05/23/19 at 02:29 Neomycin/ Polymyxin/ Bacitracin (Neosporin Topical Oint) 1 applic DAILY TOP Last administered on 05/22/19at 14:24; Admin Dose 1 APPLIC; Start 05/22/19 at 12:30 JOSE JEFFERSON MD May 22, 2019 20:38
[2019-05-22] MEDS ORDERED: DOCUSATE SODIUM 100 MG CAP PO PRN (21:00)
[2019-05-23] VITALS: BP 111/60; PULSE 84; RESP 18
[2019-05-23 01:50] VITALS: BP 116/56; PULSE 69; RESP 17
[2019-05-23 08:00] VITALS: BP 128/64; PULSE 77; RESP 20
[2019-05-23] MEDS: NEOMYC/POLYMYX/BACIT 30 GM OINT TOP SCH (09:22)
[2019-05-23] MEDS: ASPIRIN (EC) 81 MG TAB PO SCH (09:22)
[2019-05-23] MEDS: ENOXAPARIN 40 MG/0.4 ML SYG SC SCH (09:24)
[2019-05-23 14:00] VITALS: BP 130/72; PULSE 62; RESP 20
--- NOTE | 2019-05-23 17:10 | PN ---
Date/Time of Note Date/Time of Note DATE: 05/23/19 TIME: 17:09 Assessment/Plan VTE Prophylaxis Risk score (from Nsg)>0 risk: 7 SCD applied (from Nsg): Yes SCD contraindicated: low risk/ambulating Pharmacological prophylaxis: LMWH Lines/Catheters IV Catheter Type (from Nrsg): Saline Lock Urinary Cath still in place: No Assessment/Plan Hospital Course A/P 1. Syncope, stroke related. Stable cont pt; dc to SNF when bed available. 2. Bilateral carotid stenosis, stable. appt vascular 1-2wks lt /rt stenosis 3. Acute ischemic stroke, stable continue risk factor modification 4. Delirium/ encephalopathy? Multifactorial continue supportive care 5. Ftt, stable dc to SNF 6. Clinical hypothyroidism, thyroid nodules? Checked labs ultrasound 7. Type 2 diabetes A1c 9. Restarted medical therapy 8. Metabolic syndrome 9. Dyslipidemia 10. Dysphagia, continue ST therapy recommendations Subjective: 05/20 no distress following commands. 05/21: no oriented, but follows commands. no new deficits. 05/22: Oriented to year month. No distress. 05/23: No events O: Vss PE No pallor droop, no c bruits Regular no mrg Clear Benign No edema mod right lower ext weakness Result Diagram: 05/20/19 0515 05/20/19 0515 Exam/Review of Systems Exam Vitals Vital Signs Date Temp Pulse Resp B/P (MAP) Pulse Ox O2 O2 Flow FiO2 Time Delivery Rate 05/23/19 98.7 62 20 130/72 96 14:00 (91) 05/23/19 Room Air 01:50 Intake and Output 05/22/19 05/22/19 05/23/19 1515:00 23:00 07:00 IntakeIntake Total 320 ml OutputOutput Total 450 ml 300 ml BalanceBalance -130 ml -300 ml Medications Medication Current Medications IV Flush (NS 3 ml) 3 ml PER PROTOCOL IV ; Start 05/19/19 at 00:00 Ondansetron HCl (Zofran Inj) 4 mg Q6H PRN IV NAUSEA/VOMITING; Start 05/19/19 at 00:00 Acetaminophen (Tylenol Tab) 650 mg Q6H PRN PO .PAIN 1-3 OR TEMP; Start 05/19/19 at 00:00 Albuterol/ Ipratropium (Duoneb) 3 ml Q2H RESP THERAPY PRN HHN SHORTNESS OF BREATH; Start 05/19/19 at 00:00 Aspirin (Halfprin) 81 mg DAILY PO Last administered on 05/23/19 09:22; Admin Dose 81 MG; Start 05/19/19 at 09:00 [facility] This patient robledo... PRN PRN XX WOUND CARE; Start 05/19/19 at 01:00 Atorvastatin Calcium (Lipitor) 80 mg HS PO Last administered on 05/22/19 20:17; Admin Dose 80 MG; Start 05/20/19 at 21:00 Enoxaparin Sodium (Lovenox) 40 mg DAILY SC Last administered on 05/23/19 09:24; Admin Dose 40 MG; Start 05/21/19 at 09:00 Famotidine (Pepcid) 20 mg HS PO Last administered on 05/22/19 20:17; Admin Dose 20 MG; Start 05/20/19 at 21:00 Lisinopril (Zestril) 2.5 mg DAILY PO ; Start 05/24/19 at 09:00 Neomycin/ Polymyxin/ Bacitracin (Neosporin Topical Oint) 1 applic DAILY TOP Last administered on 05/23/19 09:22; Admin Dose 1 APPLIC; Start 05/22/19 at 12:30 Docusate Sodium (Colace) 100 mg DAILY PRN PO CONSTIPATION; Start 05/22/19 at 21:00 JOSE JEFFERSON MD May 23, 2019 17:10
[2019-05-23 20:37] VITALS: BP 120/64; PULSE 83; RESP 18
[2019-05-23] MEDS: FAMOTIDINE 20 MG TAB PO SCH (21:36)
[2019-05-23] MEDS: ATORVASTATIN 80 MG TAB PO SCH (21:36)
[2019-05-24 03:24] VITALS: BP 126/69; PULSE 78; RESP 18
[2019-05-24 08:29] VITALS: BP 134/64; PULSE 82; RESP 19
[2019-05-24] MEDS: NEOMYC/POLYMYX/BACIT 30 GM OINT TOP SCH (08:31)
[2019-05-24] MEDS: ENOXAPARIN 40 MG/0.4 ML SYG SC SCH (08:31)
[2019-05-24] MEDS: ASPIRIN (EC) 81 MG TAB PO SCH (08:46)
[2019-05-24] MEDS: LISINOPRIL 5 MG TAB PO SCH (08:46)
[2019-05-24 14:00] VITALS: BP 112/59; PULSE 90; RESP 18
--- NOTE | 2019-05-24 17:22 | PN ---
Date/Time of Note Date/Time of Note DATE: 05/24/19 TIME: 17:12 Assessment/Plan VTE Prophylaxis Risk score (from Ns)>0 risk: 7 SCD applied (from [facility] Yes Pharmacological prophylaxis: LMWH Lines/Catheters IV [facility] Type (from [facility] Saline Lock Urinary Cath still in place: No Assessment/Plan Assessment/Plan 1. Syncope, stroke and carotid stenosis related, no recurrence. 2. Bilateral carotid stenosis, stable, vascular surgery outpatient 3. Acute multiple ischemic stroke, stable, on aspirin and lipitor 4. DM, with HbA1c 9, start metformin 5. Dyslipidemia, on lipitor 6. Dysphagia, continue ST therapy recommendations 7. DVT prophylaxis: lovenox Result Diagram: 05/20/1951405/20/19514 Subjective 24 Hr Interval Summary Free Text/Dictation alert and oriented, slurred speech Exam/Review of Systems Exam Vitals Vital Signs Date Temp Pulse Resp B/P (MAP) Pulse Ox O2 O2 Flow FiO2 Time Delivery Rate 05/24/19 97.5 90 18 112/59 98 14:00 (76) 05/23/19 Room Air 01:50 Intake and Output 05/23/19 05/23/19 05/24/19 1515:00 23:00 07:00 IntakeIntake Total 350 ml 350 ml OutputOutput Total 600 ml BalanceBalance 350 ml 350 ml -600 ml Constitutional: alert, oriented, well developed Psych: no complaints, nl mood/affect Head: normocephalic, atraumatic Eyes: nl conjunctiva, EOMI, nl lids, PERRL ENMT: nl external ears & nose, nl lips & teeth, nl nasal mucosa & septum Neck: supple, non-tender Respiratory: clear to auscultation, normal air movement; No congested cough, No crackles/rales, No diminished breath sounds, No intercostal retraction, No labored breathing, No respirations, No tactile fremitus, No wheezing, No other Cardiovascular: regular rate and rhythm, nl pulses; No bruits, No diastolic murmur, No edema, No gallop, No irregular rhythm, No jugular venous distention (JVD), No murmurs/extra sounds, No rub, No systolic murmur, No S3, No S4, No other Gastrointestinal: soft, nl liver, spleen, non-tender Musculoskeletal: nl extremities to inspection Extremities: normal pulses; No calf tenderness, No cyanosis, No clubbing, No edema, No pitting pedal edema, No palpable cord, No tenderness, No other Neurological: [employer] II-XII intact, nl mental status, other (slurred speech) Skin: nl turgor Medications Medication Current Medications IV Flush (NS 3 ml) 3 ml PER PROTOCOL IV ; Start 05/19/19 at 00:00 Ondansetron HCl (Zofran Inj) 4 mg Q6H PRN IV NAUSEA/VOMITING; Start 05/19/19 at 00:00 Acetaminophen (Tylenol Tab) 650 mg Q6H PRN PO .PAIN 1-3 OR TEMP; Start 05/19/19 at 00:00 Albuterol/ Ipratropium (Duoneb) 3 ml Q2H RESP THERAPY PRN HHN SHORTNESS OF BREATH; Start 05/19/19 at 00:00 Aspirin (Halfprin) 81 mg DAILY PO Last administered on 05/24/19 08:46; Admin Dose 81 MG; Start 05/19/19 at 09:00 Miscellaneous Information (Pending [facility] Order For Wound Care) This patient robledo ... PRN PRN XX WOUND CARE; Start 05/19/19 at 01:00 Atorvastatin Calcium (Lipitor) 80 mg HS PO Last administered on 05/23/19 21:36; Admin Dose 80 MG; Start 05/20/19 at 21:00 Enoxaparin Sodium (Lovenox) 40 mg DAILY SC Last administered on 05/24/19 08:31; Admin Dose 40 MG; Start 05/21/19 at 09:00 Famotidine (Pepcid) 20 mg HS PO Last administered on 05/23/19 21:36; Admin Dose 20 MG; Start 05/20/19 at 21:00 Lisinopril (Zestril) 2.5 mg DAILY PO Last administered on 05/24/19 08:46; Admin Dose 2.5 MG; Start 05/24/19 at 09:00 Neomycin/ Polymyxin/ Bacitracin (Neosporin Topical Oint) 1 applic DAILY TOP Last administered on 05/24/19 08:31; Admin Dose 1 APPLIC; Start 05/22/19 at 12:30 Docusate Sodium (Colace) 100 mg DAILY PRN PO CONSTIPATION; Start 05/22/19 at 21:00 Prenat Multivit/ Verification Lead/Iron/Folic Ac () 1 tab DAILY PO ; Start 05/24/19 at 17:30 LAITH KIRAN MD May 24, 2019 17:22
[2019-05-24] MEDS: PRENATAL VITAMIN PO SCH (17:30)
[2019-05-24] MEDS ORDERED: DEXTROSE 50% 50 ML SYRINGE IV PRN ×2 (17:30)
[2019-05-24] MEDS ORDERED: GLUCOSE GEL 15 GRAM TUBE PO PRN ×2 (17:30)
[2019-05-24] MEDS ORDERED: GLUCOSE GEL 15 GRAM TUBE BUCCAL PRN (17:30)
[2019-05-24] MEDS ORDERED: GLUCAGON 1 MG INJ IM PRN (17:30)
[2019-05-24] MEDS: metFORMIN 500 MG TAB PO SCH (17:46)
[2019-05-24] MEDS: INSULIN ASPART [NOVOLOG] 3 ML PEN SC SCH ×2 (17:50→20:34)
[2019-05-24 20:00] VITALS: BP 118/58; PULSE 90; RESP 18
[2019-05-24] MEDS: FAMOTIDINE 20 MG TAB PO SCH (20:31)
[2019-05-24] MEDS: ATORVASTATIN 80 MG TAB PO SCH (20:31)
[2019-05-25 02:00] VITALS: BP 150/70; PULSE 73; RESP 17
[2019-05-25 07:49] VITALS: BP 136/67; PULSE 80; RESP 16
[2019-05-25] MEDS: INSULIN ASPART [NOVOLOG] 3 ML PEN SC SCH ×3 (08:47→17:29)
[2019-05-25] MEDS: metFORMIN 500 MG TAB PO SCH ×2 (08:48→17:30)
[2019-05-25] MEDS: ASPIRIN (EC) 81 MG TAB PO SCH (08:48)
[2019-05-25] MEDS: PRENATAL VITAMIN PO SCH (08:48)
[2019-05-25] MEDS: LISINOPRIL 5 MG TAB PO SCH (08:49)
[2019-05-25] MEDS: ENOXAPARIN 40 MG/0.4 ML SYG SC SCH (08:50)
[2019-05-25] MEDS: NEOMYC/POLYMYX/BACIT 30 GM OINT TOP SCH (09:00)
[2019-05-25] MEDS ORDERED: ENOX40DI2 SC (15:15)
[2019-05-25] MEDS ORDERED: ATOR-2 PO (15:15)
[2019-05-25] MEDS ORDERED: LISI-313 PO (15:15)
[2019-05-25] MEDS ORDERED: SITA50TA2 PO (15:15)
[2019-05-25] MEDS ORDERED: METF-849 PO (15:15)
[2019-05-25] MEDS ORDERED: ASPI-1044 PO (15:15)
--- NOTE | 2019-05-25 15:27 | DS ---
Date/Time of Note Date/Time of Note DATE: 05/25/19 TIME: 15:16 Discharge Summary Admission/Discharge Info Admit Date/Time May 18, 2019 at 19:56 Discharge Date/Time Discharge Diagnosis 1. Acute multiple ischemic stroke, stable, on aspirin and lipitor 2. Syncope, stroke and carotid stenosis related, no recurrence. 3. Bilateral carotid stenosis, stable, vascular surgery outpatient 4. DM, with HbA1c 9, metformin, januvia and ISS 5. Dyslipidemia, on lipitor 6. Dysphagia, continue Speech therapy 7. DVT prophylaxis: lovenox Patient Condition: Stable Procedures PROCEDURE: MR Brain without contrast. CLINICAL INDICATION: Confusion, syncope TECHNIQUE: An MRI of the brain was performed utilizing the following sequence s: Axial T1, axial T2, axial FLAIR, coronal gradient echo, sagittal T1 FLAIR, diffusion weighted imaging, and ADC map. COMPARISON: CT head 05/18/2019 FINDINGS: There is multiple foci of diffusion restriction involving the left frontal and parietal lobe cortex and subcortical white matter. There appears to be punctate foci of diffusion restriction in the right frontal subcortical white matter and right frontal cortex as well. There is moderate diffuse cerebral volume loss. The ventricles are symmetric and normal in configuration. There is no mass, mass effect, or midline shift. There is no abnormal intra-axial or extra-axial fluid collection. There is no intracranial hemorrhage. There are scattered areas of high T2 / FLAIR signal in the periventricular white matter, consistent with mild small vessel ischemic changes. There is old bilateral thalamic lacunar infarcts. The sella and suprasellar cistern appear within normal limits. The brainstem and posterior fossa are normal in configuration. The orbital soft tissue contents display right optic lens thinning.. Paranasal sinuses are clear. IMPRESSION: 1. Multiple punctate acute infarcts in the left frontal and parietal lobe cortex and subcortical white matter. Additional probable punctate acute infarcts in the right frontal lobe. 2. Moderate age related cerebral volume loss. Mild small vessel ischemic mooney e. 3. Old bilateral thalamic lacunar infarcts. RPTAT: DD A message was left for Dr iEd with reserve officer Rena .Jaron Willson MD, Date Time Electronically viewed and signed by .Jaron Willson MD, on 05/19/2019 14:08 .T/ PROCEDURE: US Carotids. CLINICAL INDICATION: bruit , syncope TECHNIQUE: Multiple sonographic of the carotid bifurcation region and vertebral arteries were obtained utilizing damon scale, duplex and color-flow imaging. The images were reviewed on a PACS workstation. COMPARISON: No prior studies are available for comparison. FINDINGS: Evaluation of the right carotid bifurcation region reveals moderate calcific atherosclerotic disease. There is a 48% stenosis in the right carotid bulb. Evaluation of the left carotid bifurcation region reveals moderate calcific atherosclerotic disease. There is a 55% stenosis in the left carotid bulb. There is moderate intimal thickening bilaterally. Incidentally noted are multiple bilateral thyroid nodules. The largest measures 1.1 cm and is described below. Nodule #1: Size: 1.1 cm Composition: Solid Echogenicity: Isoechoic Shape: [id number] Margin: Smooth Echogenic foci: 3 There is antegrade flow within the vertebral arteries bilaterally. RIGHT CAROTID MEASUREMENTS: Common Carotid Artery 57.2 (cm/sec) Internal Carotid Artery - proximal 113 (cm/sec) Internal Carotid Artery - mid 156.8 (cm/sec) Internal Carotid Artery - distal 141.4 (cm/sec) Internal Carotid/Common Carotid 3.6 LEFT CAROTID MEASUREMENTS: Common Carotid Artery 63.2 (cm/sec) Internal Carotid Artery - proximal 97 (cm/sec) Internal Carotid Artery - mid 319.3 (cm/sec) Internal Carotid Artery - distal 334.9 (cm/sec) Internal Carotid/Common Carotid 5.35 RPTAT: AA IMPRESSION: High grade, greater than 70% stenosis in the left ICA. 50-69% stenosis in the right ICA. - validated velocity measurements with angiographic measurements, velocity criteria are extrapolated from diameter data as defined by the Society of Radiologists in Ultrasound Consensus Conference Radiology 2003; 229;340-346. This study does indirectly reference the measurement of the distal ICA diameter as the denominator for stenosis measurement. Normal antegrade flow in the vertebral arteries bilaterally. Follow-up CT angiogram is recommended. Bilateral thyroid nodules are incidentally noted. Dedicated thyroid ultrasound is recommended. .José Miguel Metzger MD, Date Time Electronically viewed and signed by .José Miguel Metzger MD, MD on 05/19/2019 08:22 .S/ CC: CHETNA EID MD [id number] Echocardiographic Report: Transthoracic echocardiogram with complete 2D, M-Mode, and doppler examination. Indications: Syncope. Measurements: 2D/M Mode Doppler Measurement Value Normal Range Measurement Value Normal Range LVIDd 2D 4.3 [ 4.2 - 5.8 ] cm AV Peak Manav 1.2 [ 100.0 - 170.0 ] cm/sec LVIDs 2D 3.6 [ 2.5 - 4.0 ] cm AV Peak PG 6.0 [ 2.0 - 9.0 ] mmHg LVPWd 2D 1.4 [ 0.6 - 1.0 ] cm LVOT Peak Manav 1.1 [ 70.0 - 110.0 ] cm/sec IVSd 2D 1.4 [ 0.6 - 1.0 ] cm LVOT Peak PG 5.0 [ 2.0 - 6.0 ] mmHg AoR Diam 2D 3.2 [ 2.6 - 3.4 ] cm MV E Peak Manav 0.6 [ 60.0 - 130.0 ] cm/sec EDV 2D 85.4 [ 62.0 - 150.0 ] ml MV A Peak Manav 1.1 [ 100.0 - 120.0 ] cm/sec ESV 2D 55.5 [ 21.0 - 61.0 ] ml MV E/A 0.5 [ 0.8 - 1.5 ] ratio EF 2D 35.0 [ 52.0 - 72.0 ] percent MV Decel Time 229 [ 104 - 258 ] msec LA Dimen 2D 3.8 [ 3.0 - 4.0 ] cm Lat E` Manav 0.1 [ 10.0 - 15.0 ] cm/sec Lateral E/E` 7.6 [ 1.0 - 2.0 ] ratio Med E` Manav 0.1 cm/sec MV E/A 0.5 [ 0.8 - 1.5 ] ratio RA Pressure 3.0 mmHg Findings: Left Ventricle: Normal left ventricular cavity size. Mild concentric left ventricular hypertrophy. Mild global left ventricular systolic dysfunction. Ejection fraction is visually estimated at 40-45 %. Tissue Doppler/Mitral Doppler indices are consistent with impaired relaxation (Stage I diastolic dysfunction). Right Ventricle: Normal right ventricular size. Normal right ventricular systolic function. Left Atrium: The left atrium is normal in size. Right Atrium: The right atrium is normal in size. Mitral Valve: Mild mitral leaflet calcification. Mild mitral annular calcification. Trace mitral regurgitation. Aortic Valve: No significant aortic stenosis or insufficiency. Aortic cusps appear mildly calcified. Tricuspid Valve: Normal appearance of the tricuspid valve. Unable to obtain RVSP due to minimal presence of tricuspid regurgitation. Pericardium: Normal pericardium with no significant pericardial effusion. Aorta: Normal aortic root. IVC: Normal size and normal respiratory collapse consistent with normal right atrial pressure. Conclusions: Normal left ventricular cavity size. Mild concentric left ventricular hypertrophy. Mild global left ventricular systolic dysfunction. Ejection fraction is visually estimated at 40-45 %. Tissue Doppler/Mitral Doppler indices are consistent with impaired relaxation (Stage I diastolic dysfunction). Mild mitral leaflet calcification. Mild mitral annular calcification. Trace mitral regurgitation. Normal appearance of the tricuspid valve. Unable to obtain RVSP due to minimal presence of tricuspid regurgitation. Electronically Signed By: Aneesh Bennett 2019-05-19 15:15:27 PDT Hospital Course Patient is a 78-year-old male with no significant past medical history except back pain who was brought to the ER after he had a loss of consciousness and fall. He was sitting when he had a witnessed syncopal episode. He said he placed Salonpas pain relieving patch to his back and while he was sitting down, he felt dizzy. He also felt both of his leg were weak. He said he periodically use Salonpas for back pain. 3 days ago, he felt dizzy and fell while he was at a restaurant. He sustained some injury to his elbows and the skin over his knee. He denied chest pain, palpitations, seizure-like activity. When presented to the ER, vitals were stable. Head CT shows remote lacunar infarct. Right elbow x-ray shows moderate soft tissue swelling and small joint effusion, but no fracture. Chest x-ray shows there is bilateral perihilar scarring versus atelectasis, likely COPD. Patient has slurred speech. MRI brain revealed multiple punctate acute infarcts in the left frontal and parietal lobe cortex and subcortical white matter. Additional probable punctate acute infarcts in the right frontal lobe; moderate age related cerebral volume loss. Mild small vessel ischemic change; and old bilateral thalamic lacunar infarcts. Patient is treated with PT/OT and speech therapy along with aspirin and lipitor. Patient will continue with PT/OT and speech therapy in [facility] and follow up with neurology outpatient. Carotid US revealed high grade, greater than 70% stenosis in the left ICA. 50- 69% stenosis in the right ICA. That he need to see a vascular surgeon for further evaluation as outpatient, about two weeks after acute stroke. Echocardiography is unremarkable. Syncope is considered stroke related. Patient has DM with HbA1c 9. He is on metformin, januvia is added on discharge. adjust medications per PCP for medication adjustment. Home Meds Active Scripts Sitagliptin* (Januvia*) 50 Mg Tablet, 50 MG PO DAILY, #30 TAB Prov:LAITH KIRAN MD 05/25/19 Metformin* (Glucophage*) 500 Mg Tab, 500 MG PO BID WITH MEALS for 30 Days, TAB Prov:LAITH KIRAN MD 05/25/19 Aspirin Delayed Release (Aspirin Delayed Release) 81 Mg Tablet.dr, 81 MG PO DAILY for 30 Days Prov:LAITH KIRAN MD 05/25/19 Lisinopril* (Lisinopril*) 5 Mg Tablet, 2.5 MG PO DAILY for 30 Days, TAB Prov:LAITH KIRAN MD 05/25/19 Atorvastatin* (Atorvastatin*) 80 Mg Tablet, 80 MG PO HS for 30 Days, TAB Prov:LAITH KIRAN MD 05/25/19 Enoxaparin Sodium* (Enoxaparin Sodium*) 40 Mg/0.4 Ml Syringe, 40 MG SC DAILY for 10 Days Prov:LAITH KIRAN MD 05/25/19 Follow-up Plan Vascular surgery in two weeks for carotid stenosis PCP in one week Neurology in two weeks Primary Care Provider Care Physician No Primary Pending Labs Laboratory Tests Test 05/24/19 17:45 05/24/19 20:28 05/25/19 02:13 05/25/19 08:42 Bedside 369 188 263 232 Glucose mg/dL (70-220) mg/dL (70-220) mg/dL (70-220) mg/dL (70-220) Test 05/25/19 12:23 Bedside 266 Glucose mg/dL (70-220) LAITH KIRAN MD May 25, 2019 15:27
== END 2019-05-25 19:30 | DRG 65 ==
LOC: E/R 18:52 → 6WM 19:56 → PP2 05-23 01:01
PROVIDERS: ADMIT Internal Medicine; ATTEND Internal Medicine
DX: I63.233 Cerebral infarction due to unspecified occlusion or stenosis of bilateral carotid arteries (principal); G93.40 Encephalopathy, unspecified; E88.81 Metabolic syndrome and other insulin resistance; R13.10 Dysphagia, unspecified; E11.9 Type 2 diabetes mellitus without complications; E78.5 Hyperlipidemia, unspecified; I10 Essential (primary) hypertension; E03.9 Hypothyroidism, unspecified; R62.7 Adult failure to thrive; Z68.26 Body mass index [BMI] 26.0-26.9, adult; S50.311A Abrasion of right elbow, initial encounter; S53.401A Unspecified sprain of right elbow, initial encounter; W19.XXXA Unspecified fall, initial encounter; Y93.89 Activity, other specified; Y92.511 Restaurant or cafe as the place of occurrence of the external cause; Y99.8 Other external cause status; Z79.4 Long term (current) use of insulin; Z79.82 Long term (current) use of aspirin
CPT/HCPCS: 36415; 70450; 70498; 70551; 71045; 76536; 80048; 80053; 80061; 80307; 82962; 83036; 83690; 83735; 84100; 84439; 84443; 84480; 84484; 85025; 85610; 85651; 86592; 90471; 90715; 92610; 93005; 93306; 93880; 97110; 97162; 97167; 97530; J1644; J1650; J1815; J2060; J7030; Q9967